=== PATIENT | male | born 1980 | race Caucasian/White ===

== ENCOUNTER 2024-02-09 04:08 | Emergency (ER) | payer MEDICAID ==
[~2024-02-09] VITALS: Ht 180.3 cm; Wt 90.0 kg
[2024-02-09 04:14] VITALS: O2SAT 99
[2024-02-09 05:02] LABS: BASOPHILS % 1.3 % (0.0-2.0); EOSINOPHILS % 5.5 % (0.0-5.0); HEMATOCRIT. 42.2 % (42.0-52.0); HEMOGLOBIN. 14.8 g/dL (14.0-18.0); LYMPHOCYTES % 29.9 % (20.0-50.0); MEAN CORPUSCULAR HEMOGLOBIN 31.4 pg (28.0-32.0); MEAN CORPUSCULAR HGB CONC 35.2 g/dL (31.0-37.0); MEAN CORPUSCULAR VOLUME 89.3 fL (80.0-94.0); MEAN PLATELET VOLUME 8.4 fl (7.4-10.4); MONOCYTES % 7.1 % (2.0-8.0); NEUTROPHILS % 56.2 % (40.0-76.0); PLATELET 58 x1000/uL (130-400); RED BLOOD CELL COUNT 4.72 mill/uL (4.7-6.1); RED CELL DISTRIBUTION WIDTH 16.5 % (11.6-14.6); WHITE BLOOD COUNT 5.5 x1000/uL (4.5-11.0)
[2024-02-09 05:10] LABS: CHLORIDE 108 mEq/L (98-107); POTASSIUM 3.7 mEq/L (3.5-5.1); SODIUM 141 mEq/L (136-145)
[2024-02-09 05:11] LABS: CARBON DIOXIDE 29 mEq/L (21-32)
[2024-02-09] MEDS: DIPHENHYDRAMINE 50MG/ML VIAL IM STA (05:12)
[2024-02-09] MEDS: HALOPERIDOL LACTATE 5MG/ML VIAL IM STA (05:13)
[2024-02-09 05:17] LABS: CREATININE 0.9 mg/dL (0.6-1.3); ETHANOL BLOOD 204 mg/dL (<10); GLUCOSE 96 mg/dL (70-105)
[2024-02-09 05:19] LABS: ACETAMINOPHEN < 2 ug/mL (10-30); UREA NITROGEN BLOOD < 5 mg/dL (9-23)
[2024-02-09 07:34] LABS: CLARITY URINE CLEAR (CLEAR); COLOR URINE YELLOW (YELLOW); GLUCOSE URINE NEGATIVE (NEGATIVE); KETONES URINE NEGATIVE (NEGATIVE); LEUKOCYTE ESTERASE URINE TRACE (NEGATIVE); NITRITE URINE NEGATIVE (NEGATIVE); OCCULT BLOOD URINE NEGATIVE (NEGATIVE); PH URINE 6.5 (4.5-8.0); PROTEIN URINE NEGATIVE (NEGATIVE); SPECIFIC GRAVITY URINE 1.009 (1.005-1.030)
[2024-02-09 07:59] LABS: BACTERIA URINE 4+; SQUAMOUS EPITHELIAL CELL URINE RARE /lpf (RARE/1+); WBC URINE 0-2 /hpf (0-2)
[2024-02-09 08:00] LABS: RBC URINE 0-2 /hpf (0-2)
[2024-02-09 08:02] LABS: *AMPHETAMINES SCREEN URINE PRESUMPTIVE POSITIVE (NEGATIVE); *BARBITURATES SCREEN URINE NEGATIVE (NEGATIVE); *BENZODIAZEPINES SCREEN URINE NEGATIVE (NEGATIVE); *COCAINE SCREEN URINE NEGATIVE (NEGATIVE); CANNABINOID URINE SCREEN PRESUMPTIVE POSITIVE (NEGATIVE); ECSTASY MDMA SCREEN URINE NEGATIVE (NEGATIVE); METHADONE URINE SCREEN NEGATIVE (NEGATIVE); OPIATES URINE SCREEN NEGATIVE (NEGATIVE); PHENCYCLIDINE URINE SCREEN NEGATIVE (NEGATIVE)
[2024-02-09] MEDS: LORAZEPAM 1MG TABLET PO ONE (14:00)
[2024-02-10] MEDS: OLANZAPINE 5MG TABLET PO SCH (10:30)
[2024-02-10] MEDS: LORAZEPAM 0.5MG TABLET PO ONE (18:00)
[2024-02-11 04:30] VITALS: BP 117/67; PULSE 74; RESP 14; TEMP 98.6
== END 2024-02-11 04:34 ==
LOC: ER 04:08
DX: R45.851 Suicidal ideations (principal); F41.9 Anxiety disorder, unspecified; J45.909 Unspecified asthma, uncomplicated; Z20.822 Contact with and (suspected) exposure to COVID-19
CPT/HCPCS: 80305; 80048; 81003; 80307; 80329; 80320; 85025; 36415; 96372; 99285; 87426; J1200; J1630; G0480